=== PATIENT | male | born 1960 | race Caucasian/White ===

== ENCOUNTER → 2017-03-10 | Outpatient (CLI) | payer OTHER ==
[~2017-03-10] MED LIST: ADVIL200 MG PO; ASPIRIN E.C. 8181 MG PO; CELEXA 20MG20 MG/TAB PO; CLARITIN 1010 MG/TAB PO; DEPAKOTE ER 50500 MG PO; FLOMAX 0.40.4 MG/CAP PO; FLONASE NASAL S16 GM NS; MASON NATURAL2000 IU PO; MELATONIN3 MG PO; MELATONIN5 M1 SL; METHYLPHENIDATE; MICARDIS HCT 251 TAB PO; MICARDIS80 MG PO; MULTI VITAMINS1 TAB PO; NATURE'S BLEND1 TA6 PO; NEXIUM 40MG40 MG PO; NORCO 325 MG-51 TAB PO; OMEGA 31000 MG; PERCOCET 325 MG1 TA2 PO; PERCOCET 500 MG1 TAB PO; PYRIDIUM 100MG100 MG PO; RITALIN 20M20 MG/TAB PO; SEROQUEL100 MG PO; SONATA5 MG; SONATA5 MG PO; TOPROL XL 50MG50 MG PO; ULTRAM 50MG TAB50 MG PO; VITAMIN D32000 IU PO; VOLTAREN 75 DR75 MG PO; ZANAFLEX CAPSULE4 MG PO; ZOCOR 20MG20 MG PO; ZOFRAN 4MG T4 MG/TAB PO; ZOFRAN8 MG PO
== END ==
LOC: COL.RAD 06:56
DX: Z01.89 Encounter for other specified special examinations (principal)

== ENCOUNTER → 2017-03-18 | Outpatient (CLI) | payer OTHER ==
[2008-08-03 18:26] VITALS: BP 103/83
[~2017-03-18] VITALS: Ht 188 cm; Wt 131.7 kg
[~2017-03-18] MED LIST changes: +ACIPHEX20 MG PO; +FISH OIL 1000MG1 CAP PO; -OMEGA 31000 MG; +ZYRTEC 10MG10 MG PO
[2017-03-18 07:06] VITALS: BP 120/60; PULSE 83
[2017-03-18 09:55] VITALS: BP 113/58; PULSE 72
[2017-03-18 10:10] VITALS: BP 111/68; PULSE 75
[2017-03-18 10:25] VITALS: BP 126/75; PULSE 71
== END ==
LOC: COL.RAD 06:45
DX: G20 Parkinson's disease (principal); D18.09 Hemangioma of other sites; M48.07 Spinal stenosis, lumbosacral region; M48.02 Spinal stenosis, cervical region; M51.34 Other intervertebral disc degeneration, thoracic region; M51.24 Other intervertebral disc displacement, thoracic region; M47.812 Spondylosis without myelopathy or radiculopathy, cervical region; M47.814 Spondylosis without myelopathy or radiculopathy, thoracic region
CPT/HCPCS: A9585; G9654; J2405; J2704; J3010

== ENCOUNTER → 2020-12-31 | Outpatient (CLI) | payer OTHER | LOC: MHCPAIN 14:45 | DX: M47.816 Spondylosis without myelopathy or radiculopathy, lumbar region (principal); M54.16 Radiculopathy, lumbar region; M48.062 Spinal stenosis, lumbar region with neurogenic claudication; G89.29 Other chronic pain | CPT/HCPCS: G0463 ==

== ENCOUNTER → 2021-01-08 | Outpatient (CLI) | payer OTHER | LOC: MHCPAIN 08:34 | DX: M47.816 Spondylosis without myelopathy or radiculopathy, lumbar region (principal); M54.16 Radiculopathy, lumbar region | CPT/HCPCS: J1100; Q9967 ==